=== PATIENT | male | born 2000 | race Caucasian/White ===

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

== ENCOUNTER 2024-05-02 01:47 | Emergency (ER) | payer OTHER, SELFPAY ==
--- NOTE | ~2024-05-02 | XR_ITS ---
EXAMINATION: XR ankle LT min 3V DATE: 05/02/2024 02:24 INDICATION: Left ankle injury. Left ankle pain and swelling. TECHNIQUE: 4 views of left ankle were obtained. COMPARISON: None. FINDINGS: There is an oblique fracture of distal fibula with medial aspect of the fracture line at th e level of the tibial plafond. The distal fracture fragment demonstrates 5 mm posterior displacement. There is widening of the medial ankle mortise. Joint spaces are otherwise normal. There is an enthes ophyte at plantar aspect of calcaneal tuberosity. Ankle soft tissue swelling is noted. IMPRESSION: 1. Oblique fracture of distal fibula. 2. Widening of the medial ankle mortise, consistent with deltoid ligament tear. Reviewed, dictated and finalized at location A.
[2024-05-02 01:52] VITALS: BP 118/69; PULSE 98; RESP 17; TEMP 36.2; O2SAT 99
--- NOTE | 2024-05-02 02:47 | ED.LOWEXIN ---
HPI - Extremity Injury (Lower) General Chief Complaint: Extremity Injury, Lower Stated Complaint: Left ankle injury Time Seen by Provider: 05/02/24 02:10 History of Present Illness HPI Narrative: patient was drunk wrestling with his brother when he hurt his left ankle, thinks it may be broken. He is able to move it without issues. It is painful. Related Data Allergies Allergy/AdvReac Type Severity Reaction Status Date / Time amoxicillin Allergy Severe rash Verified 05/02/24 01:55 Penicillins Allergy Mild RASH Verified 05/02/24 01:55 Review of Systems Review of Systems: All systems reviewed & are unremarkable except as noted in HPI and below PMFSH Past Medical History Medical History (Updated 05/02/24 @ 02:32 by Dee Cuba MD) Marijuana use Nausea and vomiting Social History Social History (Updated 02/01/21 @ 13:09 by Kathrin Sandoval CMA) Smoking status: Current some day smoker (marijuana) Alcohol intake: never Substance use: never Living arrangements: with family Exam Narrative: EXAMINATION OF ORGAN SYSTEMS/BODY AREAS: Constitutional: Vital signs per nursing GENERAL:[No acute distress, non-toxic appearing.] HEAD: Normal with no signs of head trauma. EYES: EOMI, conjunctiva normal ENT: Hearing grossly intact LUNGS: Nonlabored breathing. HEART: [Regular rate and rhythm], normal DP pulse and cap refill L ABD: nondistended EXT: Normal range of motion, swelling/tenderness to ankle SKIN: bruising left ankle NEURO: [Alert and oriented x 3. No gross focal sensory or strength deficits.] PSYCH: Normal affect Course Vital Signs Vital signs: Vital Signs Temperature 97.1 F L 05/02/24 01:52 Pulse Rate 98 05/02/24 01:52 Respiratory Rate 17 05/02/24 01:52 Blood Pressure 118/69 05/02/24 01:52 Pulse Oximetry 99 05/02/24 01:52 Oxygen Delivery Room Air 05/02/24 01:52 Temperature 97.1 F L 05/02/24 01:52 Pulse Rate 98 05/02/24 01:52 Respiratory Rate 17 05/02/24 01:52 Blood Pressure 118/69 05/02/24 01:52 Pulse Oximetry 99 05/02/24 01:52 Oxygen Delivery Room Air 05/02/24 01:52 Procedures Orthopedic Splinting/Casting Injury #1: Splinting/Casting Date: 05/02/24 Side: left Lower Extremity Injury Location: ankle Lower Extremity Immobilizer: posterior splint Splint: customized in ED OCL: short leg Pre-Procedure Neuro Vascular Exam: normal Post-Procedure Neuro Vascular Exam: normal Other Orthopedic Equipment: crutches MDM - Extremity Injury (Lower) MDM Narrative Medical decision making narrative: patient presents with left ankle injury, he is neurovascularly intact, x-ray obtained on my independent interpretation shows lateral malleolus fracture. Splints placed, crutches given, follow-up instructions for Orthopedics provided with return precautions Discharge Plan Discharge Clinical Impression: Ankle fracture, left Patient Disposition: Home, Self-Care Condition: Stable Instructions: Antibiotic Form, Ankle Fracture (ED) Additional Instructions: Please follow up with orthopedics, try not to put weight on the leg, come back to the ER for any further issues especially if pain worsens, if you have new numbness/weakness/coldness to the foot, or anything else concerning. Prescriptions: New acetaminophen [Tylenol Extra Strength] 500 mg tablet 1,000 mg PO Q6H PRN (Reason: pain) Qty: 50 0RF ibuprofen 600 mg tablet 600 mg PO TID PRN (Reason: fever or pain) Qty: 30 0RF No Action ondansetron HCl [Zofran] 4 mg tablet 4 mg PO DAILY PRN (Reason: nausea and vomiting) Qty: 30 1RF Rx Instructions: take one pill in the AM as needed for nausea and vomiting. Follow-up/Referrals: Annika Younger MD [Primary Care Provider] - Will Knight MD [Physician] - 2 Days Stand Alone Forms: Work/School Release IP
--- NOTE | 2024-05-11 12:47 | PC.NURSE ---
LATE ENTRY This note is being entered to document information to the patient's record. The following information was omitted on [05/02/24], by [Aisha Degroot]. Wound/injury assessment location should be left ankle. Splint was applied to Left ankle.
== END 2024-05-02 03:32 | disposition home or self-care (01) ==
PROVIDERS: Emergency Provider Emergency Medicine; PCP Pediatrics
DX: S82.432A Displaced oblique fracture of shaft of left fibula, initial encounter for closed fracture (principal); F17.200 Nicotine dependence, unspecified, uncomplicated; X58.XXXA Exposure to other specified factors, initial encounter; Y93.83 Activity, rough housing and horseplay
CPT/HCPCS: 29515; 73610; 99284

== ENCOUNTER 2024-05-07 01:21 | Day surgery (SDC) | payer OTHER, SELFPAY ==
--- NOTE | 2024-05-05 16:54 | SUR.PREOP ---
Report to the Outpatient Waiting Room, entrance under the green pavilion located off [facility], at time _10:00am._ on date _05/07/24_. Planned Procedure Time: _12:00pm_. Time changes happen often and if your time is changed the preop area will call you the afternoon before. - You and your visitor will be asked to self-screen and do not enter if you have any COVID symptoms. - A mask is optional within the hospital at this time. Patients may have clear liquids (water, carbonated beverages, clear teas, apple juice) until 3 hours prior to surgery with a maximum of 20 ounces. - No food from midnight until time of surgery - Infants may have breast milk until 4 hours before surgery, infant formula 6 hours prior to surgery. - Children will be allowed to drink immediately following surgery. If applicable, please bring a bottle or sippy cup to assist with drinking. Juice, water, soda, and popsicles are readily available. For infants on formula, please bring formula the day of surgery. Pacifiers are allowed. Take the following medications with a SIP of water the morning of surgery: __TYLENOL IF NEEDED__ DO NOT STOP ANY OF YOUR OTHER PRESCRIPTION MEDICATIONS PRIOR TO SURGERY ?EXCEPT THE FOLLOWING Medications to discontinue per physician _IBUPROFEN PER DR. PEARCE_ Date to take last dose__PER DR. PEARCE Please no make-up, nail albanian, hairspray, perfume, deodorant, or body powder the day of surgery. No jewelry (including any body piercings) or valuables the day of surgery, leave them at home. Please take a shower or bath the night before, or the morning of, surgery with an antibacterial soap. Wear comfortable, loose fitting clothing. Children are encouraged to wear pajamas. - Jewelry must be removed prior to entering the operating room. Rings and piercings that are not removed may be cut off. - The hospital will not accept responsibility for valuables. - Please leave all valuables, including medications, at home the day of surgery. If you are going home after surgery, a licensed milk wagon driver must drive you home. - NO public transportation without another adult if you receive anesthesia. - We recommend that an adult stay with you for 24 hours following discharge. - We also recommend that you do not drive, make important decision, drink alcoholic beverages, or take any drugs that were not prescribed by your health care provider for at least 24 hours after your discharge time. For Pediatric surgeries, we recommend two adults accompany the child home. Follow any additional instructions given to you from your surgeon. If you or anyone in your household have experienced Covid symptoms in the past week, please notify your surgeon or the nurse liaison at the phone number below for possible testing. Telephone instructions given to __CHASE__and asked if any additional questions and then verbalized understanding. Patient advised to call surgeon office or pre surgery nurse liaison [phone] if any additional questions.
[2024-05-05 17:02] VITALS: BMI 33.0
[2024-05-07] VITALS (9 sets, daily range): BP systolic 110–145; BP diastolic 52–80; PULSE 60–101; RESP 13–20; TEMP 36.3–37.1; O2SAT 97–100
--- NOTE | ~2024-05-07 | XR_ITS ---
EXAMINATION: XR surgery orthopedic DATE: 05/07/2024 13:37 INDICATION: Left ankle fracture. TECHNIQUE: 4 intraoperative spot fluoroscopic views of left ankle were obtained. I was not present. F luoroscopy exposure time was 24 seconds. COMPARISON: Left ankle radiographs 05/05/2024 FINDINGS: There is an oblique fracture of distal fibula in near-anatomic alignment status post open r eduction internal fixation with plate and screws. There is fixation of the tibiofibular syndesmosis w ith a radiolucent band. IMPRESSION: 1. Oblique fracture of distal fibula status post open reduction internal fixation. 2. Tibiofibular syndesmosis fixation. Reviewed, dictated and finalized at location A. IMPRESSION: 1. Oblique fracture of distal fibula status post open reduction internal fixati on. 2. Tibiofibular syndesmosis fixation.
--- NOTE | 2024-05-07 09:39 | WPDHPUPDATE1 ---
History and Physical Update Update Date/Time: 05/07/24 09:39 History and Physical has been reviewed, including an updated exam of the patient. There are NO changes in the patient's condition. Risks, benefits, and alternatives have been discussed and questions answered. Patient agrees to proceed with procedure.
[2024-05-07] MEDS: ACETAMINOPHEN 500 MG TABLET 1000 MG PO (11:00)
[2024-05-07] MEDS: LACTATED RINGERS 1,000 ML 30 ML IV CONT ×2 (11:09→13:54)
--- NOTE | 2024-05-07 11:59 | W.PM.PROC2 ---
Procedure Note - Detailed Date of Procedure 05/07/24 Pre-op Diagnosis left ankle fx Post-op Diagnosis Same Procedure Performed Open reduction internal fixation left ankle fracture, direct repair deltoid ligament. Surgeon Cam Castillo MD [employer] 1st criminal legal assistant Anesthesia General Indications 23-year-old male who was wrestling and sustained a left ankle fracture With displacement. Presents for operative treatment. Description of Procedure After informed consent, the operative extremity was marked in the preoperative holding area. Patient received intravenous antibiotics. Patient was then taken to the operating room and underwent general anesthesia by the anesthesia team. Positioned supine on the operating room table with a soft bump under the ipsilateral hip. A time-out was performed confirming the patient, site of the surgery, operative plan. Lower extremity then prepped and draped in the usual sterile surgical fashion using ChloraPrep skin solution. Foot and ankle exsanguinated and a thigh tourniquet inflated to 250 mmHg. Longitudinal incision made over the lateral ankle distal fibula with a 15 blade knife. Hemostasis controlled with electrocautery. Full-thickness soft tissue flaps developed and the fascia was incised in line with the skin incision. Fracture identified and cleared with a dental pick, irrigation and rongeur. Fracture reduced and held with bone-holding clamp. Image intensification confirmed reduction of the fracture and the ankle mortise. Fixation achieved with a 3.5 millimeter fully-threaded cortical screw placed in lag technique across the fracture. Neutralization with a lateral plate with unicortical screws distal to fracture and bicortical screws proximal to the fracture. Good alignment and stability of the fracture noted. Image intensification used to confirm reduction of the fracture and placement of the hardware. Fluoroscopic stress views showed continued instability of the medial side Of the joint and deltoid ligament. decision made to proceed with deltoid ligament repair. Medial side then addressed. Longitudinal incision made with a 15 blade knife over the medial malleolus. Hemostasis controlled with electrocautery. Fascia incised in line with skin incision. Periosteum cleared from the medial malleolus. Medial side of the joint inspected and noted to have mild amount of trauma to the chondral surface. Thorough irrigation of the ankle joint and suctioned out. Complete rupture of the deltoid ligament from the medial malleolus noted. Deltoid ligament repaired to the anatomic position with 2-0 fiber wire anchored to the medial malleolus. Provisional drill hole placed the medial malleolus. [place] impacted suture then repaired through the deltoid ligament. Good stable repair noted. Repeated stress views showed good stability of the medial mortise but instability of syndesmosis. Suture tight rope then placed across the syndesmosis through the syndesmosis hole in the fracture plate. Under fluoroscopic guidance this was drilled and passed to the medial tibia tightened with the ankle in neutral position. Final stress views and fluoroscopy confirmed stability placement of the hardware. Wounds thoroughly irrigated with antibiotic solution. Fascia repaired with 00 Vicryl interrupted suture. Subcutaneous tissue repaired with 000 Monocryl interrupted suture and Skin approximated with vargas. Sterile dressings applied followed by bulky dressing and splint. Patient awoken from anesthesia, extubated and taken to the recovery room in stable condition. All sponge, needle and instrument counts correct at the end of the case. Palpable dorsalis pedis pulse noted prior to dressing. Implants Arthrex distal fibular plate and screws Estimated Blood Loss 10 Tourniquet Time Total Tourniquet Time: 70 Drains No Packing No Pathology None sent Complications None Condition Stable Disposition PACU [facility] Billing Surgery - Charge F
--- NOTE | 2024-05-07 12:05 | WPDANESEPPF ---
Anes - Initial Pre Proc Eval Procedure: Operation Date: 05/07/24 12:00 Proposed Procedures p Open Reduction Internal Fixation Left Ankle Fracture - Cam Castillo MD Date/Time: 05/07/24 12:05 Surgeon: Cam Castillo MD Pre Op Diagnosis: left ankle fx Patient Data Age: 23 Gender: M Height: 1.78 m Weight: 102.3 kg Last Vital Signs Temp 98.7 F 05/07/24 11:13 Pulse 92 05/07/24 11:13 Resp 16 05/07/24 11:13 BP 137/71 05/07/24 11:13 Pulse Ox 97 05/07/24 11:13 O2 Del Method Room Air 05/07/24 11:13 Allergies Allergy/AdvReac Type Severity Reaction Status Date / Time amoxicillin Allergy Severe rash Verified 05/07/24 10:37 Penicillins Allergy Mild RASH Verified 05/07/24 10:37 Home Medications Medication Instructions Recorded Confirmed Type acetaminophen 500 mg tablet 1,000 mg PO Q6H PRN pain #50 tabs 05/02/24 05/07/24 Rx (Tylenol Extra Strength) ibuprofen 600 mg tablet 600 mg PO TID PRN fever or pain 05/02/24 05/07/24 Rx #30 tabs hydrocodone 7.5 mg-acetaminophen 1 tablet PO Q6H PRN pain #30 tabs 05/07/24 Rx 325 mg tablet ibuprofen 800 mg tablet 800 mg PO TID PRN pain #30 tabs 05/07/24 Rx ondansetron 8 mg disintegrating 8 mg PO Q8H PRN nausea and 05/07/24 Rx tablet vomiting #10 tabs polyethylene glycol 3350 17 gram 17 g PO DAILY PRN constipation #14 05/07/24 Rx oral powder packet ea sennosides 8.6 mg-docusate sodium 1 tab-cap PO BID PRN constipation 05/07/24 Rx 50 mg tablet (Senna with Docusate #20 tabs Sodium) Patient hx anesthesia problems: none Family hx anesthesia problems: none Results Review: All pre-operative results and documents have been reviewed as part of the pre-operative evaluation. [facility] Past Medical History Medical History Marijuana use Nausea and vomiting Social History Social History Social History: caffeine use Smoking packs per day: 0.5 Smoking cigarettes per day: 10.0 Years smoked: 2 Smoking pack-years: 1.00 Smoking status: Current every day smoker Tobacco type: cigarettes Alcohol intake: current Drinks per week: 4 Substance use: never Other substance usage details: PER PATIENT DOES NOT USE Living arrangements: with family Additional living arrangements comments: with parents Occupation/Education: occupation Additional occupation/education comments: [employer] Gender identity (if verbalized by the patient): Male Spiritual care concerns: No Anes - Eval Final PreProcedure Day of Procedure 05/07/24 12:05 Patient weight: obese Heart: regular rate and rhythm Lungs: clear to auscultation Airway: Mallampati scale class II and special considerations (Large cedillo noted. ) Neurological: alert and oriented Last oral intake: >/= 8 hours ASA classification: II Emergent: no Anesthetic plan: proceed Anesthesia type and monitoring: general LMA and standard monitoring Results Review: All pre-operative results and documents have been reviewed as part of the pre-operative evaluation. Active smoker, 1/2 ppd, smoked at 9 am today. Informed Consent: The patient's anesthetic plan and its attendant risks and benefits were discussed with the patient/family/POA. Questions were solicited and answers provided to the satisfaction of the patient/family/POA.
[2024-05-07] MEDS: KETOROLAC 15 MG/ML VIAL (*BKC) IV PUSH (12:10)
[2024-05-07] MEDS: ceFAZolin 2 GM/D5W 50 ML 2 GM/50 ML BAG IVPB (12:16)
[2024-05-07] MEDS: BUPIVACAINE/EPINEPHRINE 0.5% 50 ML VIAL 30 ML INFILTRATE (13:35)
[2024-05-07] MEDS: HYDROmorphone HCL INJ (*CRX) 1 MG/ML SYR 0.25 MG IV PUSH ×2 (14:36→14:42)
[2024-05-07] MEDS: oxyCODONE HCL (*CRX) 5 MG TAB IR PO (15:36)
== END 2024-05-07 16:00 | disposition home or self-care (01) ==
PROVIDERS: Visit Provider Orthopaedic Surgery
PROC: (CPT 27792; principal; 2024-05-07 12:00)
DX: S82.892A Other fracture of left lower leg, initial encounter for closed fracture (principal); F17.210 Nicotine dependence, cigarettes, uncomplicated; F12.90 Cannabis use, unspecified, uncomplicated; E66.9 Obesity, unspecified; Z68.32 Body mass index [BMI] 32.0-32.9, adult; Z79.1 Long term (current) use of non-steroidal anti-inflammatories (NSAID); Z79.891 Long term (current) use of opiate analgesic; Y93.72 Activity, wrestling
CPT/HCPCS: 27792; 27695; 99199; A9270; C1713; J0690; J1100; J1170; J1885; J2250; J2405; J2704; J3010; J7120